=== PATIENT | female | born 1985 | race Caucasian/White ===

== ENCOUNTER 2016-09-10 07:04 | Emergency (ER) | payer MEDICAID | END 2016-09-10 08:04 | disposition home or self-care (01) | LOC: ED 07:04 | DX: K04.7 Periapical abscess without sinus (principal); E05.90 Thyrotoxicosis, unspecified without thyrotoxic crisis or storm; F17.210 Nicotine dependence, cigarettes, uncomplicated; Z88.1 Allergy status to other antibiotic agents; Z88.0 Allergy status to penicillin; Z91.048 Other nonmedicinal substance allergy status ==